=== PATIENT | female | born 1980 | race Hispanic/Latino ===

== ENCOUNTER → 2023-03-24 | Outpatient (CLI) | payer BC | END | disposition home or self-care (01) | LOC: RAH 10:49 | PROVIDERS: ATTEND Internal Medicine | DX: Z12.31 Encounter for screening mammogram for malignant neoplasm of breast (principal) | CPT/HCPCS: 77067 ==

== ENCOUNTER → 2024-09-05 | Outpatient (CLI) | payer BC ==
--- NOTE | 2024-09-06 16:49 | HMCIMG ---
CHEST 2VWS HISTORY: Preop COMPARISON: None FINDINGS: Frontal and lateral projections of the chest were obtained. There is no acute pulmonary infiltrates or failure. The heart is not enlarged. No evidence of aortic calcification is seen. Degenerative changes are seen of the thoracolumbar spine. IMPRESSION: 1. No acute pulmonary infiltrates.
== END | disposition home or self-care (01) ==
LOC: RAH 16:32
PROVIDERS: ATTEND Internal Medicine
DX: Z01.818 Encounter for other preprocedural examination (principal); M47.815 Spondylosis without myelopathy or radiculopathy, thoracolumbar region; Z96.662 Presence of left artificial ankle joint
CPT/HCPCS: 71046